=== PATIENT | male | born 1965 | race Caucasian/White ===

== ENCOUNTER 2020-06-04 10:34 | Emergency (ER) | payer OTHER, BC ==
[2020-06-04] MEDS ORDERED: Iopamidol 612 MG/ML 100 ML Bottle IVPUSH ONE (10:39)
[2020-06-04] MEDS ORDERED: Sodium Chloride 0.9% 10 ML Syringe FLUSH PRN (10:39)
[2020-06-04] MEDS ORDERED: Iopamidol 612 MG/ML 50 ML SDV IVPUSH ONE (10:39)
[2020-06-04] MEDS ORDERED: Dextrose 5%-0.9% NaCl 1,000 ML IV SCH (10:45)
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
[2020-06-04] MEDS ORDERED: Ondansetron 4 MG/2 ML SDV IVPUSH ONE (11:42)
== END 2020-06-04 12:55 ==
LOC: JD.ED 10:34
DX: S06.6X1A Traumatic subarachnoid hemorrhage with loss of consciousness of 30 minutes or less, initial encounter (principal); S22.32XA Fracture of one rib, left side, initial encounter for closed fracture; V63.5XXA Driver of heavy transport vehicle injured in collision with car, pick-up truck or van in traffic accident, initial encounter
CPT/HCPCS: 36415; 70450; 71260; 72125; 72128; 72131; 74177; 80053; 80307; 82150; 82550; 85025; 87635; 93005; 96361; 96374; 99285; J7042; Q9967; 93010; U0002